=== PATIENT | female | born 1940 | race Two or more races ===

== ENCOUNTER → 2021-05-11 08:00 | Outpatient (CLI) | payer OTHER ==
[~2021-05-11] VITALS: Ht 165.1 cm; Wt 87.1 kg
[~2021-05-11 08:00] MED LIST: ALDACTONE25 MG PO; ELIQUIS5 MG PO; HUM; LASIX20 MG PO; LIPITOR20 MG PO; LYRICA100 MG PO; SYNTHROID125 MCG PO; TOPROL XL100 M1 PO; TRAJENTA PO
== END | disposition home or self-care (01) ==
LOC: LAB 08:00 → EDSTATUS 05-15 07:15 → SURH 05-15 07:15
PROVIDERS: ATTEND Orthopaedic Surgery Sports Medicine
DX: M17.11 Unilateral primary osteoarthritis, right knee (principal)

== ENCOUNTER 2021-06-21 09:15 | Inpatient (IN) | payer OTHER ==
[~2021-06-21] VITALS: Ht 172.7 cm; Wt 82.6 kg
[2021-06-26] MEDS ORDERED: GALANTAMINE HBR8 MG (08:00)
[2021-06-26] MEDS ORDERED: ISOSORBIDE MONO60 M2 (08:00)
[2021-06-26] MEDS ORDERED: LOSARTAN POTASS25 MG (08:00)
[2021-06-26] MEDS ORDERED: TRADJENTA5 MG (08:00)
[2021-06-28] MEDS ORDERED: OXYC1TAB9 PO (06:32)
[2021-06-28] MEDS ORDERED: BACTRIM DS TAB1 EACH PO (06:32)
[2021-06-28] MEDS ORDERED: INTEGRA PLUS C1 EACH PO (06:32)
[2021-06-28] MEDS ORDERED: ELIQUIS2.5 MG PO (06:32)
== END 2021-06-28 18:44 | DRG 470 ==
LOC: ADM 09:15 → O/R 06-26 06:08 → SURH 06-26 06:08 → EDSTATUS 06-26 09:15 → CIR.AMB 06-26 09:15 → SURH 06-26 10:45
PROVIDERS: ADMIT Orthopaedic Surgery Sports Medicine; ATTEND Orthopaedic Surgery Sports Medicine
PROC: 02HV33Z Insertion of Infusion Device into Superior Vena Cava, Percutaneous Approach (ICD-10-PCS; 2021-06-26)
PROC: 0SRC0J9 Replacement of Right Knee Joint with Synthetic Substitute, Cemented, Open Approach (ICD-10-PCS; principal; 2021-06-26 10:45)
DX: M17.11 Unilateral primary osteoarthritis, right knee (principal); E03.8 Other specified hypothyroidism; I10 Essential (primary) hypertension; Z20.822 Contact with and (suspected) exposure to COVID-19; E11.9 Type 2 diabetes mellitus without complications; Z79.4 Long term (current) use of insulin; I48.91 Unspecified atrial fibrillation

== ENCOUNTER 2021-06-21 11:01 | Outpatient (CLI) | payer OTHER | END 2021-06-21 13:11 | disposition home or self-care (01) | LOC: LAB 11:01 | PROVIDERS: ATTEND Orthopaedic Surgery Sports Medicine | DX: R05.9 Cough, unspecified (principal); I10 Essential (primary) hypertension; D68.9 Coagulation defect, unspecified; Z20.828 Contact with and (suspected) exposure to other viral communicable diseases ==

== ENCOUNTER 2021-07-02 15:43 | Emergency (ER) | payer OTHER ==
[~2021-07-02] VITALS: Ht 172.7 cm; Wt 72.6 kg
[~2021-07-02 15:43] MED LIST changes: +BACTRIM DS TAB1 EACH PO; +ELIQUIS2.5 MG PO; +GALANTAMINE HBR8 MG; +INTEGRA PLUS C1 EACH PO; +ISOSORBIDE MONO60 M2; +LOSARTAN POTASS25 MG; +OXYC1TAB9 PO; +TRADJENTA5 MG
== END 2021-07-02 20:22 | disposition home or self-care (01) ==
LOC: ER 15:43
DX: R07.89 Other chest pain (principal); Z96.651 Presence of right artificial knee joint; E11.9 Type 2 diabetes mellitus without complications; Z79.4 Long term (current) use of insulin; I10 Essential (primary) hypertension